=== PATIENT | female | born 1950 | race Caucasian/White ===

== ENCOUNTER 2024-05-29 10:53 | Emergency (ER) | payer OTHER ==
--- OUTSIDE RECORDS SUMMARY | 2024-05-29 10:56 | XMS REPORT | Continuity of Care Document ---
Author Name Unknown Address [address] [facility]. [address] [place] [address] [facility] thconnect Address [address] [facility] [address] [place] [address] Care Team Providers Care Rn Vascular Name Role Phone BRENDA ALEXANDER Attending Clinician Unavailab le NT90 Attending Clinician Unavailable [id number] Attending Clinician Unavailable Payers Payer Name Policy Type Policy Number Effective Date Expirati on Date Source [employer] PPO 5 [id number] 2024 00:00:00 Problems Condition Name Condition Details Condition Category Status Onset Date Resolution Date Last Treatment Date Treating Clinician Comments Source Primary hypertensi on Primary hypertensi on Disease Active 05-12 00:00: 00 Neeraj barajas Memory loss Memory loss Disease Active 05-12 00:00: 00 Neeraj Romeroa jenn Stage 3a chronic kidney disease Stage 3a chronic kidney disease Disease Active 05-12 00:00: 00 Neeraj Romeroa jenn Allergies, Adverse Reactions, Alerts Allergy Name Allergy Type Status Severity Reaction(s) Onset Date Inactive Date Treating Clinician Comments Source Diazepam Propensi ty to adverse reaction s Active Other 2015-10 00:00: 00 Made patient aggressiv e Neeraj Linda - Externa l Codeine Propensi ty to adverse reaction s Active Other 05-12 00:00: 00 Made patient aggressiv e Neeraj Linda - Externa l Social History Social Habit Start Date Stop Date Quantity Comments Source Sexual orientation Francis Linda - External History of tobacco use Cigarette Smoker Neeraj lennon - External Cigarette pack-years 2024-05-12 00:00:00 2024-05-12 00:00:00 Neeraj Ocampo History of Social function 2024-05-12 00:00:00 2024-05-12 00:00:00 Neeraj Ocampo Cigarettes smoked current (pack per day) - Reported 2024-05-12 00:00:00 2024-05-12 00:00:00 Neeraj Ocampo Sex assigned at 1950 00:00:00 1950 00:00:00 Neeraj Ocampo Smoking Status Start Date Stop Date Source Smokes tobacco daily 2024-05-12 00:00:00 Neeraj Ocampo Medications Ordered Medication Name Filled Medication Name Start Date Stop Date Current Medication? Ordering Clinician Indication Dosage Frequency Signature (SIG) Comments Components Source Aspirin 81 MG oral Chewable Tablet 05-12 11:13: 39 Yes Neeraj barajas busPIRone HCl 5 MG oral Tablet 05-12 11:13: 39 Yes 10mg Q.5D Take 2 tablets (10 mg total) by mouth 2 times daily. Neeraj barajas Cranberry 450 MG oral Tablet 05-12 11:13: 39 Yes [id number] Neeraj barajas FLUTICASONE PROPIONATE, NASAL, 50 MCG/ACT nasal Suspension 05-12 11:13: 39 Yes Neeraj barajas Furosemide (LASIX) 20 MG oral Tablet 05-12 11:13: 39 Yes Neeraj barajas Azelastine HCl 0.05 % ophthalmic Solution 05-12 11:13: 39 Yes 1[drp] Q.5D Place 1 drop into both eyes 2 times daily. Neeraj barajas MAGNESIUM GLYCINATE ADVANCED OR 05-12 11:13: 39 Yes 200mg QD Take 200 mg by mouth daily. Neeraj barajas Amlodipine Besylate (NORVASC) 5 MG oral Tablet 05-10 00:00: 00 Yes 5mg QD Take 1 tablet (5 mg total) by mouth daily. Neeraj barajas hydrOXYzine HCl 25 MG oral Tablet 04-28 00:00: 00 Yes 25mg QD Take 1 tablet (25 mg total) by mouth daily. Neeraj barajas Metoprolol Succinate 50 MG oral TABLET SR 24 HR 04-15 00:00: 00 Yes 50mg QD Take 1 tablet (50 mg total) by mouth daily. Neeraj Romeroa jenn Memantine HCl 5 MG oral Tablet 03-30 00:00: 00 Yes 5mg QD Take 1 tablet (5 mg total) by mouth daily. Neeraj barajas Vital Signs Vital Name Observation Time Observation Value Comments S ource Systolic blood pressure 2024-05-12 16:00:00 140 mm[Hg] Neeraj cerda - External Diastolic blood pressure 2024-05-12 16:00:00 79 mm[Hg] Neeraj cerda - External Heart rate 2024-05-12 15:58:00 64 /min Santhosh Linda - External Body temperature 2024-05-12 15:58:00 36.22 Drea Neeraj Linda - External Respiratory rate 2024-05-12 15:58:00 20 /min Neeraj Linda - External Body height 2024-05-12 15:58:00 161.3 cm Evelyne lubin yogesh - External Body weight 2024-05-12 15:58:00 56.7 kg Evelyne lubin vickicitlalli - External BMI 2024-05-12 15:58:00 21.80 kg/m2 Evelyne lubin yogesh - External Oxygen saturation in Arterial blood by Pulse oximetry 2024-05-12 15:58:00 98 /min Neeraj cerda - External Encounters Start Date/Time End Date/Time Encounter Type Admission Type Attending [facility] Care Department Encounter ID Source 2024-07-12 16:30:00 2024-07-12 16:30:00 Outpatient BRENDA ALEXANDER [id number] Neeraj Linda 2024-05-29 10:15:00 2024-05-29 10:15:00 Outpatient [id number] NEERAJ IPCKARD [id number] Neeraj Linda 2024-05-29 10:00:00 2024-05-29 10:00:00 Outpatient LAB90 NEERAJ PICKARD [id number] Neeraj Noelybold 2024-05-29 00:00:00 2024-05-29 00:00:00 Outpatient BRENDA ALEXANDERSEY [id number] Neeraj [facility] 2024-05-26 00:00:00 2024-05-26 00:00:00 Outpatient BRENDA ALEXANDER NEERAJ [id number] Neeraj [facility] 2024-05-22 00:00:00 2024-05-22 00:00:00 Outpatient BRENDA ALEXANDER NEERAJ [id number] Neeraj [facility] 2024-05-22 00:00:00 2024-05-22 00:00:00 Outpatient BRENDA ALEXANDER NEERAJ [id number] [facility] 2024-05-12 13:00:00 2024-05-12 13:00:00 Outpatient LAB90 NEERAJPATY PICKARD [id number] [facility] 2024-05-12 11:00:00 2024-05-12 11:00:00 Outpatient BRENDA ALEXANDER NEERAJ [id number] [facility] 2024-05-12 00:00:00 2024-05-12 00:00:00 Outpatient BRENDA ALEXANDER NEERAJ [id number] [facility] 2024-05-12 00:00:00 2024-05-12 00:00:00 Outpatient BRENDA ALEXANDER NEERAJ PICKARD [id number] [facility] Notes Date/Time Note Provider Source 2024-05-12 11:13:41 Chief Complaint Patient presents with New Patient [facility] MAN visit Lita Neal LVN [facility]
--- NOTE | 2024-05-29 12:01 | RAD REPORT ---
EXAM DESCRIPTION: CT - Head Brain Wo Cont - 05/29/2024 11:48 am CLINICAL HISTORY: CONFUSED COMPARISON: No comparisons TECHNIQUE: Noncontrast head CT images were obtained without IV contrast. Multiplanar reformats were generated and reviewed. All CT scans are performed using dose optimization technique as appropriate and may include automated exposure control or mA/KV adjustment according to patient size. FINDINGS: No intracranial hemorrhage, mass, or edema. Midline structures are unremarkable. Normal ventricular caliber for age. Salazar-white matter differentiation is preserved, without evidence of acute infarct. No abnormal extra- axial fluid collections. Mild periventricular and deep white matter hypoattenuation, nonspecific, but suggestive of chronic sm all vessel ischemic changes. Mastoid air cells and visualized portions of the paranasal sinuses are clear. No acute bony findings. IMPRESSION: No evidence of an acute intracranial process.
--- NOTE | 2024-05-29 12:01 | RAD REPORT ---
[facility] am CLINICAL HISTORY: ams COMPARISON: CHEST PA AND LAT 2 VIEW dated 05/08/2014; CHEST PA AND LAT 2 VIEW dated 08/15/2013; CHEST SINGLE VIEW dated 08/10/2000 TECHNIQUE: Portable AP view of the chest. FINDINGS: The lungs are clear. No pneumothorax or effusion. The cardiomediastinal contours are unre markable. IMPRESSION: No acute cardiopulmonary process.
[2024-05-29 12:31] LABS: Absolute Eosinophils 0.4 K/uL (0-0.5); Absolute Lymphocytes (CBC) 1.9 K/uL (0.7-4.9); Absolute Monocytes 0.5 K/uL (0.1-1.3); Absolute Neutrophil 5.4 K/uL (1.8-8.0); Basophils % 0.5 % (0-1.3); Eosinophils % 5.3 % (0-4.4); Hematocrit 45.1 % (36.0-45.0); Hemoglobin 15.3 g/dL (12.0-15.0); Lymphocytes % 22.8 % (15.3-44.8); MCH 32.4 pg (27.0-35.0); MCHC 33.9 g/dL (32.0-36.0); MCV 95.8 fL (80-100); MPV 8.4 fL (7.6-11.3); Monocytes % 6.6 % (3.3-12.3); Neutrophils % 64.8 % (41.7-73.7); Platelets 277 thou/uL (152-406); RBC Red Blood Cell Count 4.71 M/uL (3.86-4.86); Red Cell Distribution Width 13.4 % (12.1-15.2)
[2024-05-29 12:32] LABS: Specific Gravity 1.014 (1.005-1.030); Urine Bilirubin NEGATIVE (Negative); Urine Blood Negative (Negative); Urine Clarity Clear (Clear); Urine Color Yellow (Yellow); Urine Glucose NEGATIVE (Negative); Urine Ketones NEGATIVE (Negative); Urine Microscopic Reflex YN NO UMIC; Urine Nitrite NEGATIVE (Negative); Urine Protein NEGATIVE (Negative); Urine Urobilinogen Normal (Normal); Urine pH 6.5 (5.0-7.0)
[2024-05-29 12:44] LABS: Protime INR 1.07
[2024-05-29 12:57] LABS: Albumin 3.3 g/dL (3.4-5.0); Albumin/Globulin Ratio 0.9 (1.1-1.8); Anion Gap 13.3 mEq/L (5.0-15.0); Bilirubin Total 0.5 mg/dL (0.2-1.0); Globulin 3.8 g/dL (2.3-3.5); Protein, Total 7.1 g/dL (6.4-8.2); Troponin High Sensitivity 8.8 pg/mL (<58.9)
[2024-05-29 12:58] LABS: Potassium 4.3 mEq/L (3.5-5.1)
[2024-05-29 13:13] LABS: SARS-CoV-2 Antigen CONTROL BLUE LINE VIS/BG OK; SARS-CoV-2 Antigen Rapid Res Negative (Negative)
--- NOTE | 2024-05-29 13:23 | EDPHYS ---
Physician Documentation [facility] Name: Cari Reddy Age: 74 yrs Sex: Female : 1950 Arrival Date: 05/29/2024 Time: 10:53 Bed 18 Private MD: ED Physician Yanet Llamas HPI: 05/29 11:40 This 74 yrs old Female presents to ER via Ambulatory with complaints of Altered Mental sp3 Status. 11:40 74-year-old female with a history of dementia, frequent UTIs and recent dental sp3 procedures to treat dental abscesses now presents to the ED with chief complaint altered mental status. Daughter is lan specialist of patient who states that her dementia was improving after her dental infections were treated however over the last week she is deteriorated again. She is currently on amoxicillin prophylactically prescribed by her dentist. She denies any other symptoms including trauma, fall, head injury, neck pain, chest pain, shortness of breath, abdominal pain, nausea, vomiting, diarrhea, dysuria, urinary frequency, rash, known sick contacts, travel history, prolonged immobilization, or any other signs or symptoms on ROS at this time.. Historical: - Allergies: 11:22 Codeine; iw 11:22 Vicodin; iw 11:22 Valium; iw - PMHx: 11:22 Dementia; iw - Immunization history:: Adult Immunizations Client reports having NOT received the Covid vaccine. - Infectious Disease History:: Denies. - Social history:: Smoking status: Patient reports the use of cigarette tobacco products, smokes two packs cigarettes per day. ROS: 11:41 Constitutional: Negative for fever, chills, and weight loss, ENT: Negative for injury, sp3 pain, and discharge, Neck: Negative for injury, pain, and swelling, Cardiovascular: Negative for chest pain, palpitations, and edema, Respiratory: Negative for shortness of breath, cough, wheezing, and pleuritic chest pain, Abdomen/GI: Negative for abdominal pain, nausea, vomiting, diarrhea, and constipation, Back: Negative for injury and pain, MS/Extremity: Negative for injury and deformity, Skin: Negative for injury, rash, and discoloration, Allergy/Immunology: Negative for hives, rash, and allergies, Endocrine: Negative for neck swelling, polydipsia, polyuria, polyphagia, and marked weight changes, 11:41 All other systems are negative, Exam: 11:41 Constitutional: This is a well developed, well nourished patient who is awake, alert, sp3 and in no acute distress. Head/Face: Normocephalic, atraumatic. Eyes: Pupils equal round and reactive to light, extra-ocular motions intact. Lids and lashes normal. Conjunctiva and sclera are non-icteric and not injected. Cornea within normal limits. Periorbital areas with no swelling, redness, or edema. ENT: Nares patent. No nasal discharge, no septal abnormalities noted. External auditory canals are clear. Oropharynx with no redness, swelling, or masses, exudates, or evidence of obstruction, uvula midline. Mucous membranes moist. Neck: Trachea midline, no thyromegaly or masses palpated, and no cervical lymphadenopathy. Supple, full range of motion without nuchal rigidity, or vertebral point tenderness. No Meningismus. Chest/axilla: Normal chest wall appearance and motion. Nontender with no deformity. No lesions are appreciated. Cardiovascular: Regular rate and rhythm with a normal S1 and S2. No gallops, murmurs, or rubs. Normal PMI, no JVD. No pulse deficits. Respiratory: Lungs have equal breath sounds bilaterally, clear to auscultation and percussion. No rales, rhonchi or wheezes noted. No increased work of breathing, no retractions or nasal flaring. Abdomen/GI: Soft, non-tender, with normal bowel sounds. No distension or tympany. No guarding or rebound. No evidence of tenderness throughout. Back: No spinal tenderness. No costovertebral tenderness. Full range of motion. Skin: Warm, dry with normal turgor. Normal color with no rashes, no lesions, and no evidence of cellulitis. MS/ Extremity: Pulses equal, no cyanosis. Neurovascular intact. Full, normal range of motion. Neuro: Awake and alert, GCS 15, oriented to person, place, time, and situation. Cranial nerves II-XII grossly intact. Motor strength 5/5 in all extremities. Sensory grossly intact. Cerebellar exam normal. Normal gait. Psych: Awake, alert, with orientation to person, place and time. Behavior, mood, and affect are within normal limits. 11:41 ENT: Poor dentition noted.. 11:41 Neuro: Normal neurological exam currently including mental status., 12:52 ECG was reviewed by the Attending Physician. EKG demonstrates normal sinus rhythm at 60 sp3 bpm with normal intervals, normal QRS, normal axis, normal ST/T-segment's without evidence of acute ischemia. Vital Signs: 11:17 BP 175 / 65; Pulse 54; Resp 16; Temp 97.1; Pulse Ox 99% on R/A; Weight 58.06 kg; Height iw 5 ft. 4 in. ; 13:37 BP 167 / 71; Pulse 61; Resp 16; Pulse Ox 98% ; bp 11:17 Body Mass Index 21.97 (58.06 kg, 162.56 cm) iw NIH Stroke Scale Scores: 11:27 NIHSS Score: 0 bp MDM: 11:23 Patient medically screened. sp3 11:42 Data reviewed: vital signs, nurses notes, lab test result(s), EKG, radiologic studies. sp3 ED course: 74-year-old female with dementia and altered mental status. Differential diagnosis broad includes electrolyte abnormality which she has had before, infectious etiology including influenza, COVID-19, pneumonia, bronchitis, UTI, TIA/CVA spectrum, ACS, among others. Workup will be broad and include CT scan of the head, laboratory values, EKG, chest x-ray, UA and swabs. Disposition pending workup and patient course and supportive care until then in the ED.. 13:19 ED course: Workup negative including swabs, chest x-ray, laboratory values, CT scan of sp3 the head and lactate. Patient will be safely discharged home at this time with PCP follow-up.. 05/29 11:24 Order name: Blood Culture Adult (2) sp3 05/29 11:24 Order name: CBC with Diff; Complete Time: 13: sp3 05/29 11:24 Order name: CMP; Complete Time: 13: 3 05/29 11:24 Order name: Lactate w/ 2H reflex if indic.; Complete Time: 13: 3 05/29 11:24 Order name: Protime (+inr); Complete Time: 13: sp3 05/29 11:24 Order name: Urinalysis w/ reflexes; Complete Time: 13: 3 05/29 11:24 Order name: Troponin High Sensitivity; Complete Time: 13: 3 05/29 11:24 Order name: Lipase; Complete Time: 13:09 sp3 05/29 11:24 Order name: Flu; Complete Time: 13:19 sp3 05/29 11:24 Order name: SARS RAPID; Complete Time: 13:19 sp3 05/29 11:24 Order name: Chest Single View XRAY; Complete Time: 12:05 sp3 05/29 11:24 Order name: CT Head Brain wo Cont; Complete Time: 12:05 3 05/29 11:24 Order name: Cardiac monitoring; Complete Time: 11:30 sp3 05/29 11:24 Order name: EKG - Nurse/Tech; Complete Time: 12:52 sp3 05/29 11:24 Order name: IV Saline Lock - Large Bore; Complete Time: 12:52 sp3 05/29 11:24 Order name: Labs collected and sent; Complete Time: 12:52 sp3 05/29 11:24 Order name: O2 Sat Monitoring; Complete Time: 11:30 sp3 05/29 11:24 Order name: Vital Signs; Complete Time: 11:30 sp3 Administered Medications: No medications were administered Disposition Summary: 05/29/24 13:22 Discharge Ordered Notes: Location: Home sp3 Condition: Stable sp3 Diagnosis - Altered mental status, resolved, confusion sp3 Followup: sp3 - With: Private Physician - When: Upon discharge from the Emergency Department - Reason: Continuance of care Discharge Instructions: - Discharge Summary Sheet sp3 - Dementia Caregiver Guide sp3 Forms: - Medication Reconciliation Form sp3 - Antibiotic Education sp3 - Prescription Opioid Use sp3 - Patient Portal Instructions sp3 - Leadership Thank You Letter sp3 NIH Stroke Scale - NIH Stroke Score Date: 05/29/2024 Time: : Total Score = 0 10. Dysarthria (speech clarity - read or repeat words) - 0(Normal) 11. Extinction and Inattention (visual/tactile/auditory/spatial/personal) - 0(No abnormality) 1a. Level of Consciousness (LOC) - 0(Alert) 1b. Level of Consciousness (LOC) (Month \T\ Age) - 0(Both) 1c. LOC Commands (Open \T\ Closes Eyes/Cook Ice Cream) - 0(Both) 2. Best Gaze (Lateral Gaze Paresis) - 0(Normal) 3. Visual Field Loss - 0(No visual loss) 4. Facial Palsy - 0(Normal) 5a. Left Arm: Motor (10-second hold) - 0(No drift) 5b. Right Arm: Motor (10-second hold) - 0(No drift) 6a. Left Leg: Motor (5-second hold - always test supine) - 0(No drift) 6b. Right Leg: Motor (5-second hold - always test supine) - 0(No drift) 7. Limb Ataxia (finger/nose \T\ heel/padilla - test with eyes open) - 0(Absent) 8. Sensory Loss (pinprick arms/legs/face) - 0(Normal) 9. Best Language: Aphasia (description/naming/reading) - 0(No aphasia) Initials: bp Signatures: Dispatcher [employer] EDMS Lynnette Ochoa RN FELTON iw Kian Araujo RN RN bp Yanet Llamas MD MD sp3 Corrections: (The following items were deleted from the chart) 11:25 11:25 BLOOD CULTURE*+BA.LAB.BRZ ordered. EDMS EDMS 11:25 11:25 CBC+H.LAB.BRZ ordered. EDMS EDMS 11:25 11:25 COMPREHENSIVE METABOLIC PANEL+C.LAB.BRZ ordered. EDMS EDMS 11:25 11:25 LACTATE+C.LAB.BRZ ordered. EDMS EDMS 11:25 11:25 PROTIME (+INR)+COAG.LAB.BRZ ordered. EDMS EDMS 11:25 11:25 Urinalysis+U.LAB.BRZ ordered. EDMS EDMS 11:25 11:25 Troponin High Sensitivity+C.LAB.BRZ ordered. EDMS EDMS 11:25 11:25 LIPASE+C.LAB.BRZ ordered. EDMS EDMS 11:25 11:25 Influenza Screen (A \T\ B)+BA.LAB.BRZ ordered. EDMS EDMS 11:25 11:25 SARS-COV-2 Antigen Rapid+I.LAB.BRZ ordered. EDMS EDMS 11:25 11:25 Head Brain Wo Cont+CT.RAD.BRZ ordered. EDMS EDMS
--- NOTE | 2024-05-29 13:23 | ER ---
Nurse's Notes [facility] Name: Cari Reddy Age: 74 yrs Sex: Female : 1950 Arrival Date: 05/29/2024 Time: 10:53 Bed 18 Private MD: Diagnosis: Altered mental status, resolved, confusion Presentation: 05/29 11:17 Chief complaint: Patient's son or daughter states: she has dementia, came from [facility] in April 02, has hx of low sodium and low potassium , has a problem with UTI's every 3 weeks, has slowly been gaining weight back, she has 6 abscessed teeth , she is on amoxicillin, she has been forgetting more frequently and repeating questions which started 4 days ago. Coronavirus screen: At this time, the client does not indicate any symptoms associated with coronavirus-19. Ebola Screen: No symptoms or risks identified at this time. Initial Sepsis Screen: Does the patient meet any 2 criteria? No. Patient's initial sepsis screen is negative. Does the patient have a suspected source of infection? No. Patient's initial sepsis screen is negative. Risk Assessment: Do you want to hurt yourself or someone else? Patient reports no desire to harm self or others. Onset of symptoms. 11:17 Method Of Arrival: Ambulatory iw 11:17 Acuity: MARISABEL 3 iw Triage Assessment: 11:27 General: Appears in no apparent distress. Behavior is calm, cooperative. Pain: Denies bp pain. EENT: No deficits noted. Neuro: Level of Consciousness is awake, alert, obeys commands, confused, Oriented to person, place. Cardiovascular: No deficits noted. Respiratory: No deficits noted. GI: No signs and/or symptoms were reported involving the gastrointestinal system. : No signs and/or symptoms were reported regarding the genitourinary system. Derm: No deficits noted. Musculoskeletal: No deficits noted. Historical: - Allergies: 11:22 Codeine; iw 11:22 Vicodin; iw 11:22 Valium; iw - PMHx: 11:22 Dementia; iw - Immunization history:: Adult Immunizations Client reports having NOT received the Covid vaccine. - Infectious Disease History:: Denies. - Social history:: Smoking status: Patient reports the use of cigarette tobacco products, smokes two packs cigarettes per day. Screenin:28 [facility] ED Fall Risk Assessment (Adult) History of falling in the last 3 months, bp including since admission No falls in past 3 months (0 pts) Confusion or Disorientation Yes (5 pts) Intoxicated or Sedated No (0 pts) Impaired Gait No (0 pts) Mobility Assist Device Used Yes (1 pt) Altered Elimination No (0 pt) Score/Fall Risk Level 0 - 2 = Low Risk. Abuse screen: Denies threats or abuse. Denies injuries from another. Nutritional screening: No deficits noted. Tuberculosis screening: No symptoms or risk factors identified. Assessment: 11:28 General: Appears in no apparent distress. Behavior is calm, cooperative. bp 13:43 Reassessment: Patient appears in no apparent distress at this time. Patient is alert, bp oriented x 3, equal unlabored respirations, skin warm/dry/pink. Vital Signs: 11:17 BP 175 / 65; Pulse 54; Resp 16; Temp 97.1; Pulse Ox 99% on R/A; Weight 58.06 kg; Height iw 5 ft. 4 in. ; 13:37 BP 167 / 71; Pulse 61; Resp 16; Pulse Ox 98% ; bp 11:17 Body Mass Index 21.97 (58.06 kg, 162.56 cm) iw NIH Stroke Scale Scores: 11:27 NIHSS Score: 0 bp ED Course: 11:02 Patient arrived in ED. mg5 11:05 Yanet Llamas MD is Attending Physician. sp3 11:21 Triage completed. iw 11:24 Arm band placed on. iw 11:26 Kian Araujo, RN is Primary Nurse. bp 11:28 Patient has correct armband on for positive identification. bp 11:50 CT Head Brain wo Cont In Process Unspecified. EDMS 11:54 Chest Single View XRAY In Process Unspecified. EDMS 12:00 Initial lab(s) drawn, by me, sent to lab. First set of blood cultures drawn by me, bp Second set of blood cultures drawn by me, Urine collected: clean catch specimen, COVID swab sent to lab. Flu and/or RSV swab sent to lab. 12:17 Inserted saline lock: 22 gauge in right forearm, using aseptic technique. Blood bp collected. 13:37 No provider procedures requiring assistance completed. IV discontinued, intact, bp bleeding controlled, No redness/swelling at site. Pressure dressing applied. 13:43 Provided Education on: N/A. bp Administered Medications: No medications were administered Medication: 11:28 VIS not applicable for this client. bp Outcome: 13:22 Discharge ordered by . honey 13:38 Discharged to home ambulatory, with family, bp 13:38 Condition: stable 13:38 Discharge instructions given to patient, family, Instructed on discharge instructions, follow up and referral plans. Demonstrated understanding of instructions, follow-up care, 13:44 Patient left the ED. bp NIH Stroke Scale - NIH Stroke Score Date: 05/29/2024 Time: 11:27 Total Score = 0 10. Dysarthria (speech clarity - read or repeat words) - 0(Normal) 11. Extinction and Inattention (visual/tactile/auditory/spatial/personal) - 0(No abnormality) 1a. Level of Consciousness (LOC) - 0(Alert) 1b. Level of Consciousness (LOC) (Month \T\ Age) - 0(Both) 1c. LOC Commands (Open \T\ Closes Eyes/[employer] Sales Representative) - 0(Both) 2. Best Gaze (Lateral Gaze Paresis) - 0(Normal) 3. Visual Field Loss - 0(No visual loss) 4. Facial Palsy - 0(Normal) 5a. Left Arm: Motor (10-second hold) - 0(No drift) 5b. Right Arm: Motor (10-second hold) - 0(No drift) 6a. Left Leg: Motor (5-second hold - always test supine) - 0(No drift) 6b. Right Leg: Motor (5-second hold - always test supine) - 0(No drift) 7. Limb Ataxia (finger/nose \T\ heel/padilla - test with eyes open) - 0(Absent) 8. Sensory Loss (pinprick arms/legs/face) - 0(Normal) 9. Best Language: Aphasia (description/naming/reading) - 0(No aphasia) Initials: bp Signatures: Dispatcher [employer] EDLynnette Manley RN RN iw Peltier, Brian, RN RN bp Yanet Llamas MD MD sp3 Deja Navarrtee 5 Corrections: (The following items were deleted from the chart) 11:24 11:17 BP 175 / 65; Pulse 54bpm; Resp 16bpm; Pulse Ox 99% RA; Temp 97.1F; iw iw
[2024-05-29 13:53] VITALS: TEMP 97.1
[2024-05-29 13:59] VITALS: BP 167/71; O2SAT 98
--- NOTE | 2024-05-30 12:42 | EKG ---
Test Date: 2024-05-29 Test Time: 12:49:37 Ski Molder: BP MEASUREMENT RESULTS: Intervals: Rate: 56 NH: 176 QRSD: 76 QT: 430 QTc: 414 Keyes: P: 58 NH: 176 QRS: -7 T: -1 INTERPRETIVE STATEMENTS: Sinus bradycardia Possible Anterior infarct, age undetermined Abnormal ECG Compared to ECG 04/23/2016 14:48:56 Sinus rhythm no longer present Left ventricular hypertrophy no longer present Myocardial infarct finding still present Electronically Signed On 05-30-24 12:38:47 CDT by Petros Kaye
== END 2024-05-29 13:44 | disposition home or self-care (01) ==
LOC: ER 10:53
DX: R41.0 Disorientation, unspecified (principal); F17.210 Nicotine dependence, cigarettes, uncomplicated; Z11.52 Encounter for screening for COVID-19
CPT/HCPCS: 36415; 70450; 71045; 80053; 81003; 83605; 83690; 84484; 85025; 85610; 87040; 87804; 87811; 93005; 99284

== ENCOUNTER 2025-02-15 08:35 | Day surgery (SDC) | payer OTHER ==
[2025-02-15 08:50] LABS: Absolute Basophils 0.1 K/uL (0-0.5); Absolute Eosinophils 0.5 K/uL (0-0.5); Absolute Lymphocytes (CBC) 1.8 K/uL (0.7-4.9); Absolute Monocytes 0.4 K/uL (0.1-1.3); Absolute Neutrophil 3.9 K/uL (1.8-8.0); Basophils % 1.1 % (0-1.3); Eosinophils % 7.1 % (0-4.4); Hematocrit 44.3 % (36.0-45.0); Hemoglobin 15.5 g/dL (12.0-15.0); Lymphocytes % 27.3 % (15.3-44.8); MCH 31.8 pg (27.0-35.0); MCHC 34.9 g/dL (32.0-36.0); MCV 91.1 fL (80-100); MPV 8.1 fL (7.6-11.3); Monocytes % 6.5 % (3.3-12.3); Nucleated Red Blood Cells % 0.1 % (0-0); Platelets 248 thou/uL (152-406); RBC Red Blood Cell Count 4.87 M/uL (3.86-4.86)
[2025-02-15 09:03] LABS: Anion Gap 10.1 mEq/L (5.0-15.0); Potassium 4.1 mEq/L (3.5-5.1)
[2025-02-15] MEDS: Ringers Lactate 1,000 ML IV ONE (09:15)
[2025-02-15] MEDS ORDERED: SILVER NITRATE 1 APPL TOP ONE (09:32)
[2025-02-15] MEDS ORDERED: LIDOCAINE 2% MPF 5 ML VIAL ONE (09:42)
[2025-02-15] MEDS ORDERED: propofoL 200 MG/20 ML VIAL IV ONE ×2 (09:42→10:12)
[2025-02-15] MEDS ORDERED: ONDANSETRON 4 MG/2 ML VIAL ONE (09:42)
[2025-02-15] MEDS ORDERED: FENTANYL CITR 100 MCG/2 ML ONE (09:42)
[2025-02-15] MEDS ORDERED: EPHEDRINE SULF 50 MG/ML VIAL ONE (10:25)
[2025-02-15] MEDS: LIDOCAINE HCL/EPINEPHRINE 20 ML MDV ONE (10:42)
[2025-02-15 11:57] VITALS: TEMP 97.6; O2SAT 96
[2025-02-15 12:43] VITALS: BP 124/81
--- NOTE | 2025-02-15 23:25 | OP ---
Date of Procedure: 02/15/2025 Surgeon: Erica Henry MD Mold Injector: No assistants. Preoperative Diagnoses: Postmenopausal bleeding and endometrial polyp. Postoperative Diagnoses: Postmenopausal bleeding and endometrial polyp. Procedures Performed: Hysteroscopy, polypectomy, and dilation and curettage with MyoSure Lite. Anesthesia: MAC and paracervical block. Complications: No complications. Drains: No drains. Specimens: Endometrial polyp and curettings. Findings: Endometrial polyp was seen as noted in the office on the right lateral wall. This was com pletely excised for sampling and endometrial curettage was performed with a curette after the MyoSure Lite device was removed as it was difficult to sample adequately with the device. The patient tolerated the procedure well. Estimated Blood Loss: Less than 10 mL. Indications: The patient is a 74-year-old with first episode of postmenopausal bleeding, brought to the office by her daughter. Endometrial lining was thickened on transvaginal ultrasound. Diagnostic hysteroscopy was performed in the office and endometrial polyp was noted. Then, she was consented f or polypectomy and D and C in the hospital and brought over. Procedure In Detail: She was re-consented in the preoperative area with her daughter by her bedside. Then, she was taken back to the OR, placed in the supine fashion on the operating table. After MAC was given, she was placed in a dorsal lithotomy position. Vulva, vagina, and perineum were prepped and draped in a sterile fashion. The MyoSure scope was primed and the whole circuit was primed. Speculum was placed to expose the cervix. Anterior lip injected with 5 mL of 1% lidocaine with epine phrine, and at the 4 and 8 o'clock positions for paracervical block another 6 mL each was given. The anterior lip was grasped with a single-tooth tenaculum. The hysteroscope was passed after the cervi x was dilated to 14-Spanish. Once the cavity was well visualized, the outflow channel was removed and the MyoSure Lite device was inserted, and polypectomy was performed completely. Then, curette was u sed to take some sampling. Then, once the device was removed, curettage was performed with a 0 curet te. All of the sample was sent over for permanent pathology. All the instruments were removed. Ins trument, needle, and sponge counts were correct. The patient tolerated the procedure well and recove red from anesthesia, and taken to PACU in a stable condition and her daughter was debriefed about her procedure. They will follow up with me for their appointment to discuss the bladder issues and then later for the biopsy results. LATONYA Voice ID: [id number] Report ID: [id number]
--- NOTE | 2025-02-19 16:56 | EKG ---
Test Date: 2025-02-15 Test Time: 08:26:23 Criminal Justice Lawyer: MIYA MEASUREMENT RESULTS: Intervals: Rate: 56 DC: 192 QRSD: 82 QT: 420 QTc: 405 [place]: P: 71 DC: 192 QRS: -19 T: 70 INTERPRETIVE STATEMENTS: Sinus bradycardia Low voltage QRS ST abnormality, possible digitalis effect Abnormal ECG Compared to ECG 05/29/2024 12:49:37 Low QRS voltage now present ST (T wave) deviation now present Myocardial infarct finding no longer present Electronically Signed On 02-19-25 16:50:23 CDT by Petros Kaye
== END 2025-02-15 12:00 | disposition home or self-care (01) ==
LOC: DS 08:35
PROVIDERS: ATTEND Obstetrics & Gynecology
PROC: 0UDB8ZX Extraction of Endometrium, Via Natural or Artificial Opening Endoscopic, Diagnostic (ICD-10-PCS; principal; 2025-02-15 10:00)
DX: N95.0 Postmenopausal bleeding (principal); N84.0 Polyp of corpus uteri
CPT/HCPCS: 93005; 85025; 80048; 36415; 88305; 58558; J2704 ×2; J2003; J3010; J2405; J7120